=== PATIENT | female | born 1975 | race Two or more races ===

== ENCOUNTER 2024-03-02 13:02 | Emergency (ER) | payer MEDICAID ==
[2024-03-02] MEDS: Aspirin 81 MG Tab.Chew PO ONE (13:15)
[2024-03-02] MEDS: Lactated Ringers 1,500 ML IV SCH (13:30)
[2024-03-02 13:36] LABS: BASOPHILS PERCENT AUTO 0.1 % (0.2-1.2); HEMATOCRIT 44.5 % (33.0-47.0); HEMOGLOBIN 15.7 g/dL (12.0-16.0); IMMATURE GRAN ABSOLUTE AUTO 0.09 x10^3/uL (0.00-0.07); LYMPHOCYTES ABSOLUTE AUTO 0.3 x10^3/uL (1.0-4.8); LYMPHOCYTES PERCENT AUTO 1.8 % (25.0-50.0); MEAN CORPUSCULAR HEMOGLOBIN 29.7 pg (26.0-32.0); MEAN CORPUSCULAR HGB CONC 35.3 g/dL (32.0-36.0); MEAN CORPUSCULAR VOLUME 84.1 fL (78.0-93.0); MONOCYTES ABSOLUTE AUTO 0.9 x10^3/uL (0.0-0.8); MONOCYTES PERCENT AUTO 5.8 % (2.0-11.0); NEUTROPHILS ABSOLUTE AUTO 13.6 x10^3/uL (1.8-7.7); NEUTROPHILS PERCENT AUTO 91.7 % (50.0-80.0); PLATELET COUNT,PLT 175 x10^3/uL (130-400); RED BLOOD CELL COUNT 5.29 x10^6/uL (4.00-5.50)
[2024-03-02 13:41] VITALS: BP 139/88; PULSE 134
[2024-03-02 13:42] LABS: WHITE BLOOD CELL COUNT,WBC 14.8 x10^3/uL (4.0-10.0)
[2024-03-02 13:53] LABS: ANION GAP 32.1 mmol/L (5-15); CREATININE 1.4 mg/dL (0.55-1.02); EST CRCL DRUG DOSING (CG) 39.77 mL/min; POTASSIUM,K 4.1 mmol/L (3.5-5.1)
[2024-03-02 14:07] LABS: APPEARANCE,URINE CLEAR (CLEAR); BILIRUBIN,URINE SMALL (NEGATIVE); COLOR,URINE YELLOW (YELLOW); GLUCOSE,URINE 500 mg/dL (NEGATIVE); KETONES,URINE 80 mg/dL (NEGATIVE); LEUKOCYTE ESTERASE,URINE NEGATIVE (NEGATIVE); NITRITE,URINE NEGATIVE (NEGATIVE); OCCULT BLOOD,URINE TRACE-INTACT (NEGATIVE); PH,URINE 5.5 (5.0-8.0); PROTEIN,URINE 30 mg/dL (NEGATIVE)
[2024-03-02 14:13] LABS: AMORPHOUS SEDIMENT,URINE FEW; BACTERIA,URINE RARE /HPF (NOT SEEN); GRANULAR CASTS,URINE MODERATE; HYALINE CASTS,URINE MODERATE; MUCUS,URINE OCCASIONAL /LPF (NOT SEEN); RBC,URINE 0-5 /HPF (NOT SEEN); SQUAMOUS EPITHELIAL CELLS,UR FEW /HPF (NOT SEEN); WBC,URINE 0-5 /HPF (NOT SEEN)
[2024-03-02] MEDS ORDERED: Insulin Regular in 0.9 % NACL 100 ML IV SCH ×2 (14:15→14:30)
[2024-03-02] MEDS ORDERED: 50% Dextrose in Water 50 ML Syringe IVPUSH PRN (14:21)
[2024-03-02] MEDS ORDERED: Glucagon,Human Recombinant 1 MG Vial IM PRN (14:21)
[2024-03-02] MEDS: Insulin Regular in 0.9 % NACL 100 ML IV SCH (14:40)
[2024-03-02] MEDS: Insulin Regular, Human 100 Units/ML 3 ML Vial IVPUSH ONE (14:43)
[2024-03-02 14:57] LABS: HCO3 VENOUS,POC 6 mmol/L (22-29); O2 SATURATION VENOUS,POC 100 %; PCO2 VENOUS,POC 14 mmHg (41-51); PH VENOUS,POC 7.26 pH (7.32-7.43); PO2 VENOUS,POC 180 mmHg
[2024-03-02] MEDS ORDERED: Ondansetron 4 MG/2 ML SDV ONE (15:07)
[2024-03-02] MEDS: Ondansetron 8 MG in Sodium Chloride 0.9% 100 ML IV ONE (15:19)
== END 2024-03-02 16:01 | disposition home or self-care (01) ==
LOC: VM.ED 13:02
DX: E86.0 Dehydration (principal); R82.4 Acetonuria
CPT/HCPCS: 36415; 71045; 80048; 81001; 82010; 82803; 82947; 83605; 84484; 85025; 93005; 96361; 96374; 99285-25; A9270-GY; J1815-GY; J2405; J3490; J7120